=== PATIENT | female | born 1935 | race Caucasian/White ===

== ENCOUNTER → 2016-12-14 | Outpatient (CLI) | payer MEDICARE ==
[~2016-12-14] MED LIST: HAIR, SKIN & N1 EAC1 PO; INDERAL10 MG PO; MAGNESIUM250 MG PO; PROPYLTHIOURACI50 MG PO; VALSARTAN80 MG PO; VITAMIN D-32000 UNI2 PO
== END | disposition home or self-care (01) ==
LOC: CDC
DX: Z01.810 Encounter for preprocedural cardiovascular examination (principal); D05.12 Intraductal carcinoma in situ of left breast
CPT/HCPCS: 93000

== ENCOUNTER 2016-12-30 05:48 | Day surgery (SDC) | payer OTHER ==
[~2016-12-30] VITALS: Ht 154.9 cm; Wt 82.0 kg
[2016-12-30 06:23] VITALS: BP 149/68
[2016-12-30 16:55] VITALS: BP 146/67
[2016-12-30 20:03] VITALS: BP 147/63
[2016-12-30 23:16] VITALS: BP 125/59
[2016-12-31 03:23] VITALS: BP 128/60
[2016-12-31 08:35] VITALS: BP 124/54
[2016-12-31] MEDS ORDERED: COLACE100 MG PO (08:37)
[2016-12-31] MEDS ORDERED: OXAYDO5 MG PO (08:37)
== END 2016-12-31 09:30 | disposition home or self-care (01) ==
LOC: SDC 05:48 → 2SOUTH 12:00 → SDC 15:20 → 2EAST 15:52
DX: D05.12 Intraductal carcinoma in situ of left breast (principal); I10 Essential (primary) hypertension; E03.9 Hypothyroidism, unspecified; Z85.42 Personal history of malignant neoplasm of other parts of uterus; Z88.8 Allergy status to other drugs, medicaments and biological substances
CPT/HCPCS: 78195; 78999; 88305; 88307; 88331; 88332; A9541; G0378; J0690; J1100; J1170; J2405; J3010; J3480; S0020